=== PATIENT | female | born 1995 | race African-American/Black ===

== ENCOUNTER 2019-11-21 19:38 | Emergency (ER) | payer MEDICAID, OTHER ==
[2019-11-21] MEDS ORDERED: MORPHINE SULFATE IR 15 MG TABLET PO ONE (20:01)
--- NOTE | 2019-11-21 20:03 | ER Document Report ---
ED Medical Screen (RME) - General Chief Complaint: Back Pain Stated Complaint: BACK PAIN AND KNEE PAIN Time Seen by Provider: 11/21/19 19:50 Primary Care Provider: ALFREDO PASTOR MD [Primary Care Provider] - Follow up as needed TRAVEL OUTSIDE OF THE [place] IN LAST 30 DAYS: No - HPI Notes: 11/21/19 20:00 24-year-old female presents emergency room for severe lower back pain and right knee pain that started approximately 2 days ago. Patient took 4000 mg of Tylenol this morning and 4000 mg of Tylenol this afternoon because the pain was so severe. Patient did not know that she was overdosing on acetaminophen and trying to manage her pain. Denies any trauma. Denies any bowel or bladder dysfunction. Pain is 7 out of 10, sharp and stabbing. Pain is sharp and severe. Denies any radiation down her legs. Patient states that she injured her right knee years ago and she accidentally hit her knee with a skate. her right knee had a lot of swelling, never followed up with her doctor after. Denies any numbness or tingling down bilateral lower extremities. I have greeted and performed a rapid initial assessment of this patient. A comprehensive ED assessment and evaluation of the patient, analysis of test results and completion of the medical decision making process will be conducted by additional ED providers. PHYSICAL EXAMINATION: GENERAL: Well-appearing, well-nourished and in no acute distress. HEAD: Atraumatic, normocephalic. EYES: Pupils equal round extraocular movements intact, conjunctiva are normal. NECK: Normal range of motion CV: s1, s2 regular LUNGS: No respiratory distress Musculoskeletal: Normal range of motion. Lumbar spine tenderness on palpation L2-L5 NEUROLOGICAL: Normal speech, normal gait. SKIN: Warm, Dry, normal turgor, no rashes or lesions noted. - Related Data Allergies/Adverse Reactions: No Known Allergies Allergy (Verified 07/22/15 02:55) Past Medical History - Immunizations Immunizations up to date: Yes Hx Diphtheria, Pertussis, Tetanus Vaccination: Yes Physical Exam - Vital signs Vitals: Temp Pulse Resp BP Pulse Ox 98.2 F 84 18 135/58 H 100 11/21/19 19:53 11/21/19 19:53 11/21/19 19:53 11/21/19 19:53 11/21/19 19:53 Course - Vital Signs Vital signs: Temp Pulse Resp BP Pulse Ox 98.2 F 84 18 135/58 H 100 11/21/19 19:53 11/21/19 19:53 11/21/19 19:53 11/21/19 19:53 11/21/19 19:53 Doctor's Discharge - Discharge Referrals: ALFREDO PASTOR MD [Primary Care Provider] - Follow up as needed
--- NOTE | 2019-11-21 20:51 | RADIOLOGY REPORT (SQ) ---
4 VIEWS OF RIGHT KNEE EXAM DATE: 11/21/2019 7:57 PM PATROL LADY HISTORY: Knee pain. COMPARISON: None. FINDINGS: No acute fracture or dislocation is seen. The joint spaces are preserved. No knee joint effusion is seen. IMPRESSION: No acute fracture or malalignment.
--- NOTE | 2019-11-21 20:52 | RADIOLOGY REPORT (SQ) ---
5 VIEWS OF LUMBAR SPINE EXAM DATE: 11/21/2019 7:57 PM HE[employer]ULATOR HISTORY: Lower back pain. COMPARISON: None. FINDINGS: No acute compression fracture is seen. Normal lumbar alignment. The disc spaces and facet joints are intact. The sacroiliac joints are preserved. No evidence of spondylolysis on the oblique views. IMPRESSION: No acute lumbar findings are seen.
[2019-11-21 21:07] LABS: ABSOLUTE EOSINOPHILS # (AUTO) 0.1 10^3/uL (0.0-0.6); ABSOLUTE LYMPHOCYTES (AUTO) 2.9 10^3/uL (0.5-4.7); ABSOLUTE MONOCYTES (AUTO) 0.5 10^3/uL (0.1-1.4); BASOPHILS % (AUTO) 0.6 % (0-2); EOSINOPHILS % (AUTO) 1.1 % (0-6); HEMATOCRIT 38.3 % (36.0-47.0); LYMPHOCYTES % (AUTO) 44.7 % (13-45); MEAN CORPUSCULAR HEMOGLOBIN 32.4 pg (27.0-33.4); MEAN CORPUSCULAR VOLUME 95 fl (80-97); MONOCYTES % (AUTO) 8.2 % (3-13); PLATELET COUNT 357 10^3/uL (150-450); RED BLOOD COUNT 4.02 10^6/uL (3.72-5.28); RED CELL DISTRIBUTION WIDTH 13.3 % (11.5-14.0); SEGMENTED NEUTROPHILS % (AUTO) 45.4 % (42-78); TOTAL CELLS COUNTED % (AUTO) 100 %; WHITE BLOOD COUNT 6.5 10^3/uL (4.0-10.5)
[2019-11-21 21:16] LABS: ALBUMIN 5.1 g/dL (3.5-5.0); ALKALINE PHOSPHATASE 79 U/L (38-126); ANION GAP 11 (5-19); ASPARTATE AMINO TRANSFERASE 38 U/L (14-36); BILIRUBIN,DIRECT 0.3 mg/dL (0.0-0.4); BILIRUBIN,TOTAL 0.3 mg/dL (0.2-1.3); BLOOD UREA NITROGEN 14 mg/dL (7-20); CALCIUM 9.8 mg/dL (8.4-10.2); CARBON DIOXIDE 26 mmol/L (22-30); CHLORIDE 102 mmol/L (98-107); GLUCOSE 77 mg/dL (75-110); POTASSIUM 4.3 mmol/L (3.6-5.0); TOTAL PROTEIN 8.3 g/dL (6.3-8.2)
[2019-11-21 21:18] LABS: ACETAMINOPHEN < 10 ug/mL (10-30)
[2019-11-21] MEDS ORDERED: CYCLOBENZAPRINE HCL 10 MG TABLET PO ONE (22:38)
--- NOTE | 2019-11-21 23:16 | ER Document Report ---
ED General - General Chief Complaint: Back Pain Stated Complaint: BACK PAIN AND KNEE PAIN Time Seen by Provider: 11/21/19 19:50 Primary Care Provider: ALFREDO PASTOR MD [ACTIVE STAFF] - Follow up as needed Notes: 24-year-old female presents with low back pain and right knee pain that is been ongoing for the past 2 to 3 days. Patient states she has been doing a lot of heavy lifting at work but denies any specific injury to her back. Patient denies any difficulty with urinating or defecating. Patient denies any saddle anesthesia. Patient states it is worse with movement. Patient denies any IV drug use. Patient states for right knee she has a history of an injury years ago. Patient denies any fever. Pt states she has been taking a lot of Tylenol for her pain. TRAVEL OUTSIDE OF THE [place] IN LAST 30 DAYS: No - Related Data Allergies/Adverse Reactions: No Known Allergies Allergy (Verified 07/22/15 02:55) Past Medical History - Social History Smoking Status: Former Smoker Family History: Reviewed & Not Pertinent Patient has suicidal ideation: No Patient has homicidal ideation: No - Immunizations Immunizations up to date: Yes Hx Diphtheria, Pertussis, Tetanus Vaccination: Yes Review of Systems - Review of Systems Notes: Constitutional: Negative for fever. HENT: Negative for sore throat. Eyes: Negative for visual changes. Cardiovascular: Negative for chest pain. Respiratory: Negative for shortness of breath. Gastrointestinal: Negative for abdominal pain, vomiting or diarrhea. Genitourinary: Negative for dysuria. Musculoskeletal: Positive for back pain and right knee pain. Skin: Negative for rash. Neurological: Negative for headaches, weakness or numbness. 10 point ROS negative except as marked above and in HPI. Physical Exam - Vital signs Vitals: Temp Pulse Resp BP Pulse Ox 98.2 F 84 18 135/58 H 100 11/21/19 19:53 11/21/19 19:53 11/21/19 19:53 11/21/19 19:53 11/21/19 19:53 - Notes Notes: GENERAL: Well-appearing, well-nourished and in no acute distress. HEAD: Atraumatic, normocephalic. EYES: Extraocular movements intact, sclera anicteric, conjunctiva are normal. NECK: Normal range of motion, supple without lymphadenopathy or JVD. EXTREMITIES: Normal range of motion, no pitting or edema. No clubbing or cyanosis. Right knee: No tenderness to knee. FROM. Anterior drawer and posterior drawer normal. BACK: No spinal tenderness. Tenderness to paraspinal muscles. NEUROLOGICAL: Cranial nerves II through XII grossly intact. Normal speech, normal gait. PSYCH: Normal mood, normal affect. SKIN: Warm, Dry, normal turgor, no rashes or lesions noted. Course - Re-evaluation Re-evalutation: 11/21/19 nontoxic, well-appearing 24-year-old female with history of back pain and right knee pain. No rapid progression of symptoms, systemic symptoms including fevers, chills, weight loss, history of recent bacterial infection, bilateral symptoms, numbness, weakness, difficulty walking, urinary retention or bowel incontinence, personal history of cancer, immunosuppression, diabetes, known AAA, or history of IV drug use. Exam is without point tenderness over vertebral bodies, pulsatile abdominal mass. X-ray of back and right knee show no fractures. Exam without spinal tenderness. Knee is nontender, not swollen, FROM, anterior drawer/posterior drawer negative. Pt given Flexeril and will reeval. Labs are WNL. Tylenol is negative. Afebrile, nontachycardic. 11/21/19 23:58 Pt's pain has improved with Flexeril. Will prescribed Flexeril with sedation warning. Pt given referral to PCP and ortho for knee. Strict return precautions given. Pt voices understanding and agrees with plan of care. - Vital Signs Vital signs: Temp Pulse Resp BP Pulse Ox 98.2 F 84 18 135/58 H 100 11/21/19 19:53 11/21/19 19:53 11/21/19 19:53 11/21/19 19:53 11/21/19 19:53 - Laboratory Result Diagrams: 11/21/19 20:30 11/21/19 20:30 Laboratory results interpreted by me: 11/21/19 20:30 AST 38 H Total Protein 8.3 H Albumin 5.1 H Acetaminophen < 10 L Discharge - Discharge Clinical Impression: Muscle spasm Right knee pain Qualifiers: Chronicity: unspecified Qualified Code(s): M25.561 - Pain in right knee Back pain Qualifiers: Back pain location: low back pain Chronicity: acute Back pain laterality: bilateral Sciatica presence: without sciatica Qualified Code(s): M54.5 - Low back pain Condition: Stable Disposition: HOME, SELF-CARE Instructions: Low Back Pain ([facility]), Muscle Strain ([facility]), Warm Packs ([facility]), Ice Packs ([facility]) Additional Instructions: Please rest, ice, and elevate your right knee. If no improvement in pain in 1 week please follow-up with Ortho, Dr. Ponce. For your back please use heat as discussed. Take Flexeril as prescribed. Do not drink or drive while taking as it may make you drowsy. Follow-up with your primary care doctor or 1 of the clinics listed in 3 to 5 days. Return to ER for any worsening symptoms, including difficulty with urinating/defecating, numbness to your private area, inability to walk, fever, or any other symptoms that are concerning to you. Prescriptions: Cyclobenzaprine HCl [Flexeril 10 mg Tablet] 10 mg PO TIDP PRN #15 tab PRN Reason: Referrals: ALFREDO PASTOR MD [ACTIVE STAFF] - Follow up in 3-5 days KAREN PONCE MD [ACTIVE STAFF] - Follow up in 3-5 days
[2019-11-22 00:32] VITALS: BP 105/49
== END 2019-11-22 00:31 | disposition home or self-care (01) ==
LOC: ER 19:38
DX: M62.830 Muscle spasm of back (principal); M54.5 Low back pain; M25.561 Pain in right knee; M54.9 Dorsalgia, unspecified; X50.0XXA Overexertion from strenuous movement or load, initial encounter; Z87.891 Personal history of nicotine dependence
CPT/HCPCS: 36415; 72110; 80053; 80307; 84703; 85025; 99283

== ENCOUNTER 2019-11-24 13:56 | Emergency (ER) | payer MEDICAID, OTHER ==
[2019-11-24 14:51] VITALS: BP 116/67
--- NOTE | 2019-11-24 15:06 | ER Document Report ---
HPI - HPI Patient complains to provider of: Work note, low back pain Time Seen by Provider: 11/24/19 14:54 Pain Level: 2 Notes: 24-year-old female to the emergency department requesting a return to work note. She states she was seen here 2 days ago in the emergency department for low back pain. 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 She states that she was seen on the and given medicine for home use. She states is not working. She states she continues to have pain. She states that she went back to work yesterday and was actually sent home because she continued to have back pain. She states that her boss told her that she had to have a note in order to return back to work. Patient denies any bladder bowel incontinence, radiculopathy, saddle paresthesias, urinary retention, IV drug abuse, fevers or chills. - ROS Systems Reviewed and Negative: Yes All other systems reviewed and negative - CONSTITUTIONAL Constitutional: DENIES: Fever, Chills - EENT EENT: DENIES: Sore Throat, Ear Pain, Nasal Drainage-Clear, Nasal Drainage- Purulent, Congestion - NEURO Neurology: DENIES: Headache - CARDIOVASCULAR Cardiovascular: DENIES: Chest pain - RESPIRATORY Respiratory: DENIES: Trouble Breathing, Coughing - GASTROINTESTINAL Gastrointestinal: DENIES: Abdominal Pain, Nausea, Patient vomiting, Diarrhea, Constipation - URINARY Urinary: DENIES: Dysuria, Urgency, Frequency - REPRODUCTIVE Reproductive: DENIES: : - MUSCULOSKELETAL Musculoskeletal: REPORTS: Back Pain Notes: See HPI - DERM Skin Color: Normal Past Medical History - General Information source: Patient - Social History Smoking Status: Former Smoker Frequency of alcohol use: None Drug Abuse: None Family History: Reviewed & Not Pertinent Patient has suicidal ideation: No Patient has homicidal ideation: No - Immunizations Immunizations up to date: Yes Hx Diphtheria, Pertussis, Tetanus Vaccination: Yes Vertical Provider Document - CONSTITUTIONAL Agree With Documented VS: Yes General Appearance: WD/WN, No Apparent Distress - INFECTION CONTROL TRAVEL OUTSIDE OF THE [place] IN LAST 30 DAYS: No - HEENT HEENT: Atraumatic, Normal ENT Exam, Normocephalic, PERRLA - NECK Neck: Normal Inspection, Supple - RESPIRATORY Respiratory: Breath Sounds Normal, No Respiratory Distress. negative: Rales, Rhonchi, Wheezing - CARDIOVASCULAR Cardiovascular: Regular Rate, Regular Rhythm, No Murmur - GI/ABDOMEN Gastrointestinal: Abdomen Soft, Abdomen Non-Tender, No Organomegaly - BACK Notes: There is tenderness to palpation over the midline lumbar spine. Patient is able to lift light things and put them down under to demonstrate, ability to do hand packing. However as she leans over and pull she has pain in the lower back. Negative straight leg raise bilaterally. - NEURO Level of Consciousness: Awake, Alert Course - Re-evaluation Re-evalutation: 11/24/19 Since patient continues to have pain and actually was made to go home from work yesterday while working on the line I do not believe that I can clear her completely to return back to work. We did discuss other options for her. There is a second line where she can hand pack about 5 pounds and we practiced that movement in triage. She states that she did not have any pain while doing these movements. I agree with allowing her to return to work on light duty performing this task and not moving anything heavier than 10 pounds. I explained to her that that extent and told her that I needed her to follow-up with primary care physician for further clearance. Patient agrees with the plan. We will send her home with NSAIDs, Lidoderm, Robaxin. She agrees with plan. - Vital Signs Vital signs: Temp Pulse Resp BP Pulse Ox 98.3 F 95 16 116/67 98 11/24/19 14:50 11/24/19 14:50 11/24/19 14:50 11/24/19 14:50 11/24/19 14:50 Discharge - Discharge Clinical Impression: Back spasm Low back pain Qualifiers: Chronicity: acute Back pain laterality: midline Sciatica presence: without sciatica Qualified Code(s): M54.5 - Low back pain Condition: Stable Disposition: HOME, SELF-CARE Instructions: Low Back Pain ([facility]) Additional Instructions: Take medicines as prescribed. Follow-up with primary care for further brandie luation and for physical therapy for your back. You been written a work note to return on light duty. You may not return to full duty until you are cleared by primary care. Prescriptions: Etodolac 200 mg PO BID #20 capsule Lidocaine [Lidoderm 5% (700 mg) Transdermal Patch] 1 patch TP DAILY #30 adh..patch Methocarbamol [Robaxin 500 mg Tablet] 500 mg PO TID #20 tablet Forms: Special Work Note Referrals: [facility] [Provider Group] - Follow up in 3-5 days
== END 2019-11-24 15:10 | disposition home or self-care (01) ==
LOC: ER 13:56
DX: M54.5 Low back pain (principal); R25.2 Cramp and spasm; Z87.891 Personal history of nicotine dependence
CPT/HCPCS: 99283

== ENCOUNTER 2020-04-11 19:51 | Emergency (ER) | payer SELFPAY ==
--- NOTE | 2020-04-11 20:08 | ER Document Report ---
ED General - General Chief Complaint: Other Stated Complaint: COVID EXPOSURE/WANTS TO BE TESTED Time Seen by Provider: 04/11/20 20:07 Notes: 24-year-old female presents with asymptomatic COVID test request. She had contact with a known positive patient. She has no symptoms. TRAVEL OUTSIDE OF THE [place] IN LAST 30 DAYS: No - Related Data Allergies/Adverse Reactions: No Known Allergies Allergy (Verified 07/22/15 02:55) Past Medical History - General Information source: Patient - Social History Smoking Status: Unknown if Ever Smoked Family History: Reviewed & Not Pertinent - Immunizations Immunizations up to date: Yes Hx Diphtheria, Pertussis, Tetanus Vaccination: Yes Review of Systems - Review of Systems Notes: REVIEW OF SYSTEMS GEN: Denies fever, chills, weight loss ENT: Denies sore throat, nasal discharge, ear pain EYES: Denies blurry vision, eye pain, discharge CV: Denies chest pain, palpitations, edema RESP: Denies cough, shortness of breath, wheezing GI: Denies abdominal pain, nausea, vomiting, diarrhea MSK: Denies joint pain/swelling, edema, SKIN: Denies rash, skin lesions LYMPH: Denies swollen glands/lymph nodes NEURO: Denies headache, focal weakness or numbness, dizziness PSYCH: Denies depression, suicidal or homicidal ideation PHYSICAL EXAMINATION G general: No acute distress, well-nourished Head: Atraumatic, normocephalic ENT: Mouth normal, oropharynx moist, lips normal Eyes: Conjunctiva normal, pupils equal, lids normal Neck: No JVD, supple, no guarding Resp: No resp distress, equal chest rise GI: Nondistended, no guarding Back: No midline or CVA tenderness Ext: No deformities, no edema Skin: Well-perfused, no rash Neuro: Awake, alert. Face symmetric. Physical Exam - Vital signs Vitals: Temp Pulse Resp BP Pulse Ox 99.3 F 84 16 118/69 99 04/11/20 20:05 04/11/20 20:05 04/11/20 20:05 04/11/20 20:05 04/11/20 20:05 Course - Re-evaluation Re-evalutation: 04/11/20 20:25 Asymptomatic COVID test quarantine at home until results come back. I have discussed with the patient there likely diagnosis, aftercare plan, follow-up plans and my usual and customary return precautions. They verbalized understanding of this. - Vital Signs Vital signs: Temp Pulse Resp BP Pulse Ox 99.3 F 84 16 118/69 99 04/11/20 20:05 04/11/20 20:05 04/11/20 20:05 04/11/20 20:05 04/11/20 20:05 Discharge - Discharge Clinical Impression: Exposure to COVID-19 virus Condition: Good Disposition: HOME, SELF-CARE Additional Instructions: You have been evaluated for complaints or symptoms which could reflect infection with coronavirus/Covid-19 disease. I has been tested for coronavirus, and until the results come back within 24 to 48 hours you should assume you are infected. Please stay at home with minimal interaction to others, wash your hands, practice social distancing while at home, and remained at home without any travel outside of the home for: 1. At least 3 days (72 hours) have passed since recovery defined as resolution of fever without the use of fever-reducing medications and improvement in respiratory symptoms (e.g., cough, shortness of breath) AND 2. At least 7 days have passed since symptoms first appeared.
[2020-04-11 20:28] VITALS: BP 127/68
== END 2020-04-11 20:51 | disposition home or self-care (01) ==
LOC: ER 19:51
DX: Z20.828 Contact with and (suspected) exposure to other viral communicable diseases (principal)
CPT/HCPCS: 99282; 87635; C9803; 36415

== ENCOUNTER 2020-05-06 19:47 | Emergency (ER) | payer MEDICAID ==
[2020-05-06 22:22] VITALS: BP 136/70
--- NOTE | 2020-05-06 23:15 | ER Document Report ---
HPI - HPI Time Seen by Provider: 05/06/20 22:39 Pain Level: Denies Context: Patient is a 24-year-old female with no past medical history who presents the emergency department after exposure to somebody who tested positive for COVID- 19. Patient states that she does not have any symptoms. Denies any fever, body aches, chills, abdominal pain, nausea, vomiting, or any other symptoms. He says she has a mild headache, but states that it is tolerable. - ROS Systems Reviewed and Negative: Yes All other systems reviewed and negative - CONSTITUTIONAL Constitutional: DENIES: Fever, Chills - EENT EENT: DENIES: Sore Throat, Ear Pain, Nasal Drainage-Clear, Nasal Drainage- Purulent, Congestion, Eye problems - NEURO Neurology: DENIES: Headache - CARDIOVASCULAR Cardiovascular: DENIES: Chest pain - RESPIRATORY Respiratory: DENIES: Trouble Breathing, Coughing - GASTROINTESTINAL Gastrointestinal: DENIES: Abdominal Pain, Nausea, Patient vomiting - REPRODUCTIVE Reproductive: DENIES: : - MUSCULOSKELETAL Musculoskeletal: DENIES: Extremity pain Past Medical History - Social History Smoking Status: Never Smoker Frequency of alcohol use: None Family History: Reviewed & Not Pertinent Patient has homicidal ideation: No - Immunizations Immunizations up to date: Yes Hx Diphtheria, Pertussis, Tetanus Vaccination: Yes Vertical Provider Document - CONSTITUTIONAL Agree With Documented VS: Yes Exam Limitations: No Limitations General Appearance: No Apparent Distress - INFECTION CONTROL TRAVEL OUTSIDE OF THE [place] IN LAST 30 DAYS: No - HEENT HEENT: Atraumatic, Normocephalic - RESPIRATORY Respiratory: No Respiratory Distress - CARDIOVASCULAR Cardiovascular: Regular Rate - MUSCULOSKELETAL/EXTREMETIES Musculoskeletal/Extremeties: FROM - NEURO Level of Consciousness: Awake, Alert, Appropriate Motor/Sensory: No Motor Deficit, No Sensory Deficit Course - Re-evaluation Re-evalutation: 05/06/20 Patient was tested for COVID-19. Limited contact with the patient due to worldwide pandemic COVID-19. Exam is limited. Patient instructed to self quarantine. They are in agreement with this plan. Follow-up precautions were given. Verbal discharge instructions were given to the patient. They verbalized understanding. They are stable for discharge. - Vital Signs Vital signs: Temp Pulse Resp BP Pulse Ox 98.7 F 89 18 136/70 H 100 05/06/20 22:21 05/06/20 22:21 05/06/20 22:21 05/06/20 22:21 05/06/20 22:21 Discharge - Discharge Clinical Impression: Exposure to COVID-19 virus Condition: Stable Disposition: HOME, SELF-CARE Additional Instructions: You were seen today in the emergency department and was tested for COVID-19. Please self isolate until your results are back. The health department will call you with your results. If they are positive, quarantine for at least 2 weeks. Follow-up with your primary care provider as needed.
== END 2020-05-06 23:28 | disposition home or self-care (01) ==
LOC: ER 19:47
DX: Z03.818 Encounter for observation for suspected exposure to other biological agents ruled out (principal)
CPT/HCPCS: 99282; 87635; C9803

== ENCOUNTER 2020-07-07 19:07 | Emergency (ER) | payer OTHER, MEDICAID ==
[2020-07-07] MEDS ORDERED: ACETAMINOPHEN 325 MG TABLET PO ONE (19:56)
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
[2020-07-07 20:20] VITALS: BP 116/70
== END 2020-07-07 20:20 | disposition home or self-care (01) ==
LOC: ER 19:07
DX: R51 Headache (principal); M54.9 Dorsalgia, unspecified; V43.52XA Car driver injured in collision with other type car in traffic accident, initial encounter
CPT/HCPCS: 99282